=== PATIENT | female | born 1985 | race Caucasian/White ===

== ENCOUNTER 2017-10-21 07:45 | Inpatient (IN) ==
[2017-10-21] MEDS ORDERED: CITRIC ACID/SODIUM CITRATE 30 ML UDCUP PO ONE (08:06)
[2017-10-21] MEDS ORDERED: ceFAZolin 2,000 MG in PREMIX 1 EACH IV ONE (08:06)
[2017-10-21] MEDS ORDERED: LACTATED RINGERS 1,000 ML IV ONE (08:09)
[2017-10-21] MEDS ORDERED: FAMOTIDINE 20 MG/2 ML VIAL IV ONE (08:09)
[2017-10-21] MEDS ORDERED: LACTATED RINGERS 1,000 ML IV SCH ×3 (08:30→13:30)
[2017-10-21 08:50] LABS: Basophils % 0.2 % (0.0-0.8); Eosinophils % 0.1 % (0.00-10.9); Hematocrit 32.8 VOL% (35.7-47.0); Hemoglobin 11.2 GM/DL (12.0-16.0); Immature Granulocytes % 2.3 %; Immature Granulocytes Absolute 0.36 #; Lymphocytes # 2.7 10*3/uL (1.4-4.0); Mean Corpuscular HGB Conc 34.1 GM/DL (32-36); Mean Corpuscular Hemoglobin 30 PG (27-34); Mean Corpuscular Volume 87.2 FL (87-102); Mean Platelet Volume 10.3 FL (9.6-12.0); Monocytes # 1.2 10*3/uL (0.11-0.8); Monocytes % 7.4 % (1.7-12.7); Neutrophils # 11.5 10*3/uL (1.4-7.4); Platelet Count 229 T/CUMM (130-400); Red Blood Count 3.76 MC/CUMM (3.8-5.5); Red Cell Distribution Width 13.1 % (9.3-17.3); White Blood Count 15.8 T/CUMM (4-12)
[2017-10-21 09:23] LABS: Alanine Aminotransferase 21 U/L (13-56); Albumin 3.3 G/DL (3.4-5.0); Alkaline Phosphatase 166 U/L (45-117); Aspartate Amino Transferase 16 U/L (0-37); Bilirubin,Total < 0.39 MG/DL (0.2-1.0); Blood Urea Nitrogen 11 MG/DL (7-18); Calcium 8.6 MG/DL (8.5-10.1); Glucose 80 MG/DL (74-106); Osmolality,Calculated 274.5 MOS/KG (273-304); Potassium 3.9 MMOL/L (3.5-5.1); Sodium 139 MMOL/L (136-145); Total Protein 6.9 G/DL (6.4-8.3)
[2017-10-21] MEDS ORDERED: OXYTOCIN/LR 20 UNIT/1,000 ML BAG IV ONE ×2 (09:52→12:29)
[2017-10-21] MEDS ORDERED: ONDANSETRON 4 MG/2 ML VIAL IV PRN ×2 (12:29→13:10)
[2017-10-21] MEDS ORDERED: ACETAMINOPHEN 325 MG TABLET PO PRN (12:29)
[2017-10-21] MEDS ORDERED: RHO(D) IMMUNE GLOBULIN 300 MCG SYRINGE IM ONE (12:30)
[2017-10-21] MEDS ORDERED: MORPHINE 10 MG/1 ML VIAL IV ONE (12:58)
[2017-10-21] MEDS ORDERED: hydrOXYzine HCL 25 MG/1 ML VIAL IM PRN ×2 (13:10→20:05)
[2017-10-21] MEDS ORDERED: diphenhydrAMINE 50 MG/1 ML VIAL IV PRN (13:10)
[2017-10-21] MEDS ORDERED: HYDROmorphone 2 MG/1 ML VIAL IV PRN (13:10)
[2017-10-21] MEDS ORDERED: ACETAMINOPHEN INJ 1,000 MG in PREMIX 1 EACH IV ONE (13:27)
[2017-10-21] MEDS ORDERED: SODIUM CHLORIDE 0.9% 1,000 ML IV SCH (13:30)
[2017-10-21] MEDS ORDERED: PHENYLEPHRINE 1 MG/10 ML SYRINGE IV ONE (13:39)
[2017-10-21] MEDS ORDERED: MIDAZOLAM 2 MG/2 ML VIAL ONE (13:40)
[2017-10-21] MEDS ORDERED: fentaNYL 100 MCG/2 ML VIAL ONE (13:40)
[2017-10-21] MEDS ORDERED: ePHEDrine 50 MG/ML AMP ONE (13:40)
[2017-10-21] MEDS ORDERED: BUPIVACAINE SPINAL 0.75% 2 ML AMP SPINAL ONE (13:41)
[2017-10-21 13:47] LABS: Apearance,Urine CLEAR (Clear); Bilirubin,Urine Negative (Negative); Blood, Urine Negative (Negative); Glucose,Urine (UA) Negative (Negative); Hyaline Casts,Urine 1 /LPF (0-3); Ketones,Urine 5 mg/dL (Negative); Mucus,Urine Many /LPF (Occasional); Nitrite,Urine Negative (Negative); Protein,Urine 30 MG/DL; RBC,Urine 1 /HPF (0-4); Squamous Epithelial Cell,Urine Occasional /HPF (0-10); Urine Color Yellow (Yellow); Urine Specific Gravity 1.018 (1.001-1.035); Urine Urobilinogen < 2.0 EU/DL (0.2-1.0); WBC,Urine 4 /HPF (0-6)
[2017-10-21] MEDS ORDERED: MORPHINE 10 MG/10 ML VIAL ONE (13:47)
[2017-10-21] MEDS: KETOROLAC 30 MG/1 ML VIAL IV PRN ×2 (14:02→20:11)
[2017-10-21] MEDS: MEPERIDINE 50 MG/1 ML VIAL IV PRN ×2 (15:11→20:57)
[2017-10-21] MEDS ORDERED: ceFAZolin 1,000 MG in SYRINGE 1 EACH IV SCH (16:30)
[2017-10-21 18:04] LABS: Basophils % 0.2 % (0.0-0.8); Eosinophils % 0.1 % (0.00-10.9); Hematocrit 27.8 VOL% (35.7-47.0); Hemoglobin 9.7 GM/DL (12.0-16.0); Immature Granulocytes % 1.2 %; Lymphocytes # 2.2 10*3/uL (1.4-4.0); Lymphocytes % 12.4 % (21.3-54.2); Mean Corpuscular HGB Conc 34.9 GM/DL (32-36); Mean Corpuscular Hemoglobin 30 PG (27-34); Mean Corpuscular Volume 85.5 FL (87-102); Mean Platelet Volume 10.7 FL (9.6-12.0); Monocytes # 1.2 10*3/uL (0.11-0.8); Monocytes % 7.1 % (1.7-12.7); Neutrophils # 13.7 10*3/uL (1.4-7.4); Platelet Count 190 T/CUMM (130-400); Red Blood Count 3.25 MC/CUMM (3.8-5.5); Red Cell Distribution Width 13.1 % (9.3-17.3); White Blood Count 17.4 T/CUMM (4-12)
[2017-10-21] MEDS: ceFAZolin 1,000 MG in SYRINGE 1 EACH IV SCH (18:20)
[2017-10-21] MEDS: DOCUSATE SODIUM 100 MG CAPSULE PO SCH (21:27)
[2017-10-22] MEDS: ceFAZolin 1,000 MG in SYRINGE 1 EACH IV SCH (01:49)
[2017-10-22] MEDS: KETOROLAC 30 MG/1 ML VIAL IV PRN (01:56)
[2017-10-22] MEDS: oxyCODONE/ACETAMINOPHEN 5-325 MG TABLET PO PRN ×4 (05:10→21:20)
[2017-10-22 05:57] LABS: Basophils # 0.1 10*3/uL (0.0-0.2); Basophils % 0.4 % (0.0-0.8); Eosinophils # 0.1 10*3/uL (0.0-0.87); Eosinophils % 0.9 % (0.00-10.9); Hemoglobin 8.8 GM/DL (12.0-16.0); Immature Granulocytes % 0.8 %; Immature Granulocytes Absolute 0.11 #; Lymphocytes # 1.9 10*3/uL (1.4-4.0); Lymphocytes % 13.4 % (21.3-54.2); Mean Corpuscular HGB Conc 35.2 GM/DL (32-36); Mean Corpuscular Hemoglobin 30 PG (27-34); Mean Corpuscular Volume 86.2 FL (87-102); Mean Platelet Volume 10.5 FL (9.6-12.0); Monocytes # 1.5 10*3/uL (0.11-0.8); Monocytes % 10.6 % (1.7-12.7); Neutrophils # 10.4 10*3/uL (1.4-7.4); Neutrophils % 73.9 % (38.7-73.9); Platelet Count 182 T/CUMM (130-400); Red Cell Distribution Width 13.3 % (9.3-17.3)
[2017-10-22] MEDS: IBUPROFEN 800 MG TABLET PO PRN ×3 (07:57→23:42)
[2017-10-22] MEDS: DOCUSATE SODIUM 100 MG CAPSULE PO SCH ×3 (08:00→21:11)
[2017-10-22] MEDS: MULTIVITAMIN (PRENATAL) TABLET PO SCH (08:00)
[2017-10-22] MEDS: MAGNESIUM HYDROXIDE SUSP 30 ML UDCUP PO PRN ×2 (09:29→19:52)
[2017-10-22] MEDS: FERROUS SULFATE 325 MG TABLET PO SCH (09:29)
[2017-10-22] MEDS: PANTOPRAZOLE 20 MG TABLET PO SCH (09:55)
[2017-10-22] MEDS: SIMETHICONE CHEW 80 MG TABLET PO PRN ×2 (17:25→23:35)
[2017-10-22] MEDS: METOCLOPRAMIDE 10 MG TABLET PO PRN (23:36)
[2017-10-23] MEDS ORDERED: BISACODYL 10 MG SUPP RECTAL PRN (01:20)
[2017-10-23] MEDS: oxyCODONE/ACETAMINOPHEN 5-325 MG TABLET PO PRN (02:34)
[2017-10-23 07:43] VITALS: BP 111/63
[2017-10-23] MEDS: METOCLOPRAMIDE 10 MG TABLET PO PRN (08:46)
[2017-10-23] MEDS: DOCUSATE SODIUM 100 MG CAPSULE PO SCH (08:46)
[2017-10-23] MEDS: FERROUS SULFATE 325 MG TABLET PO SCH (08:46)
[2017-10-23] MEDS: SIMETHICONE CHEW 80 MG TABLET PO PRN (08:46)
[2017-10-23] MEDS: PANTOPRAZOLE 20 MG TABLET PO SCH (08:46)
[2017-10-23] MEDS: IBUPROFEN 800 MG TABLET PO PRN (08:47)
[2017-10-23] MEDS: MULTIVITAMIN (PRENATAL) TABLET PO SCH (08:47)
[2017-10-23] MEDS: MAGNESIUM HYDROXIDE SUSP 30 ML UDCUP PO PRN (08:48)
[2017-10-23] MEDS ORDERED: DIPH/TET/ACEL PERT BOOSTER VACCINE 0.5 ML VIAL IM ONE ×2 (10:19→11:09)
== END 2017-10-23 11:15 | disposition home or self-care (01) | DRG 766 ==
LOC: N.LDOUT 07:45 → N.LD 07:47 → N.OB 14:45
PROVIDERS: ADMIT Obstetrics & Gynecology; ATTEND Obstetrics & Gynecology